=== PATIENT | male | born 1945 | race African-American/Black ===

== ENCOUNTER 2018-07-17 11:05 | Inpatient (IN) | payer BC, OTHER ==
[2018-07-17 11:31] LABS: URINE APPEARANCE CLEAR; URINE BILIRUBIN NEGATIVE (<2.0 mg/dL); URINE COLOR YELLOW; URINE GLUCOSE (UA) 3+ (NEGATIVE); URINE KETONE TRACE (NEGATIVE); URINE LEUK ESTERASE NEGATIVE (NEGATIVE); URINE NITRITE NEGATIVE (NEGATIVE); URINE PROTEIN 1+ (NEGATIVE); URINE UROBILINOGEN NEGATIVE mg/dL (0.2-1.0)
[2018-07-17 11:35] LABS: EPI CELLS RARE /HPF (FEW); URINE MUCUS RARE
[2018-07-17] MEDS ORDERED: SODIUM CHLORIDE 1,000 ML IV STA (12:01)
--- NOTE | 2018-07-17 12:23 | PDOC ---
History of Present Illness - General Chief Complaint: SIRS, Suspected/Possible Stated Complaint: PCP SENT Time Seen by Provider: 07/17/18 11:54 History Source: Patient - History of Present Illness Timing/Duration: other (yesterday) Associated Symptoms: reports: fever/chills, malaise, weakness. denies: cough, diaphoresis, headaches, nausea/vomiting Past History - Past Medical History Allergies/Adverse Reactions: Allergies Allergy/AdvReac Type Severity Reaction Status Date / Time No Known Drug Allergies Allergy Verified 07/17/18 11:12 Home Medications: Ambulatory Orders Amlodipine Besylate [Norvasc -] 10 mg PO DAILY 10/24/14 Aspirin [Aspirin EC] 81 mg PO DAILY 10/24/14 Losartan Potassium 50 mg PO DAILY 10/24/14 Metformin HCl [Metformin HCl ER] 1,000 mg PO BID 10/24/14 Tamsulosin HCl [Flomax -] 0.4 mg PO DAILY 10/24/14 Atorvastatin Calcium [Lipitor] 10 mg PO HS 07/17/18 Sitagliptin Phosphate [Januvia] 50 mg PO DAILY@0700 07/17/18 Anemia: No Asthma: No Cancer: No Cardiac Disorders: No CVA: No COPD: No CHF: No Dementia: No Diabetes: Yes (IDDM) GI Disorders: Yes (COLON POLYPS, DUODENAL ULCER) Disorders: Yes (BPH) HTN: Yes Hypercholesterolemia: Yes Liver Disease: No Seizures: No Thyroid Disease: No - Surgical History Abdominal Surgery: No Appendectomy: No Cardiac Surgery: No Cholecystectomy: No Lung Surgery: No Neurologic Surgery: No Orthopedic Surgery: Yes (ARTHROSCOPIC SX LEFT KNEE 2003) - Suicide/Smoking/Psychosocial Hx Smoking History: Never smoked Hx Alcohol Use: No Drug/Substance Use Hx: No Substance Use Type: None Hx Substance Use Treatment: No Review of Systems - Review of Systems Constitutional: Yes: Fever, Malaise Respiratory: No: Cough, Shortness of Breath Cardiac (ROS): No: Chest Pain ABD/GI: No: Nausea, Vomiting, Abdominal cramping : Yes: Frequency. No: Flank Pain, Hematuria Neurological: No: Headache *Physical Exam - Vital Signs Last Vital Signs Temp Pulse Resp BP Pulse Ox 98.2 F 104 H 20 128/75 96 07/17/18 11:13 07/17/18 11:13 07/17/18 11:13 07/17/18 11:13 07/17/18 11:13 - Physical Exam General Appearance: Yes: Appropriately Dressed. No: Apparent Distress HEENT: positive: Normal Voice Neck: positive: Supple Respiratory/Chest: positive: Lungs Clear, Normal Breath Sounds. negative: Respiratory Distress Cardiovascular: positive: Regular Rate, S1, S2 Gastrointestinal/Abdominal: positive: Soft. negative: Tender Musculoskeletal: negative: CVA Tenderness Extremity: positive: Normal Inspection Integumentary: positive: Dry, Warm Neurologic: positive: Fully Oriented, Alert, Normal Mood/Affect ED Treatment Course - LABORATORY CBC & Chemistry Diagram: 07/17/18 12:18 07/17/18 12:18 - ADDITIONAL ORDERS Additional order review: Laboratory Results 07/17/18 11:21 Urine Color Yellow Urine Appearance Clear Urine pH 5.0 D Ur Specific [place] 1.025 Urine Protein 1+ H Urine Glucose (UA) 3+ H Urine Ketones Trace H Urine Blood Negative Urine Nitrite Negative Urine Bilirubin Negative Urine Urobilinogen Negative Ur Leukocyte Esterase Negative Urine WBC (Auto) 16 Urine RBC (Auto) 1 Ur Epithelial Cells Rare Urine Mucus Rare Medical Decision Making - Medical Decision Making 07/17/18 12:18 73-year-old male, history of [id number] diabetes, was in usual state of health until yesterday when pt started experiencing generalized weakness with urinary frequency and low grade fever. Pt states yesterday he urinated approximately 10 times, including going on himself per patient. No back/flank/ abd pain, hematuria, nausea, or change in bowel movements. Denies chest pain or shortness of breath See exam Fever w/ weakness R/o uti given hx, labs/cxr r/o other source Mildly tachy but afebrile w/ unremarkable exam otherwise -IVF -labs -anticipate admission 07/17/18 13:22 07/17/18 15:53 Leukocytosis to 18 with unremarkable, UA, chest x-ray and CT. Case discussed with Dr. Mcgraw who states he saw patient this a.m. and that patient was hypoxic to 92%, tachycardic and had a low-grade fever of 101 F. Agrees with admission at this time and treat for possible UTI. States patient should be admitted to hospitalist *DC/Admit/Observation/Transfer Diagnosis at time of Disposition: Malaise, Urinary frequency Fever Qualifiers: Fever type: unspecified Qualified Code(s): R50.9 - Fever, unspecified - Discharge Dispostion Condition at time of disposition: Fair Decision to Admit order: Yes - Referrals Referrals: Kareem Mcgraw MD [Primary Care Provider] - - Patient Instructions - Post Discharge Activity
[2018-07-17 12:32] LABS: BASO % 0.4 % (0-2.0); HEMATOCRIT 43.8 % (35.4-49); HEMOGLOBIN 14.3 GM/dL (11.7-16.9); LYMPH % 8.2 % (8-40); MCH 27.2 pg (25.7-33.7); MCHC 32.6 g/dl (32.0-35.9); MEAN CELL VOLUME 83.5 fl (80-96); MEAN PLT VOLUME 9.8 fl (7.5-11.1); MONO % 6.5 % (3.8-10.2); NEUT % 84.9 % (42.8-82.8); PLATELET COUNT 131 K/MM3 (134-434); RBC 5.25 M/mm3 (4.00-5.60); RDW 13.9 % (11.9-15.9); WHITE BLOOD COUNT 18.9 K/mm3 (4.0-10.0)
[2018-07-17] MEDS ORDERED: CEFTRIAXONE 1 GM in DEXTROSE 5%-WATER - 50 ML IVPB ONE (12:57)
[2018-07-17 13:00] LABS: ALBUMIN 3.3 g/dl (3.4-5.0); ANION GAP 7 MMOL/L (8-16); BILIRUBIN,TOTAL 0.9 mg/dL (0.2-1.0); BLOOD UREA NITROGEN 21 mg/dL (7-18); CALCIUM 8.8 mg/dL (8.5-10.1); CHLORIDE 102 mmol/L (98-107); CO2 28 mmol/L (21-32); CREATININE 1.5 mg/dL (0.7-1.3); GLUCOSE,RANDOM 104 mg/dL (74-106); LIPASE 60 U/L (73-393); POTASSIUM 4.2 mmol/L (3.5-5.1); SGOT/AST 13 U/L (15-37); SGPT/ALT 11 U/L (12-78); SODIUM 137 mmol/L (136-145); TOT PROT 7.6 g/dl (6.4-8.2)
[2018-07-17 13:01] LABS: ALK PHOS 65 U/L (45-117)
[2018-07-17] MEDS ORDERED: CEFTRIAXONE 1 GM/50 ML BAG ONE (13:14)
[2018-07-17] MEDS ORDERED: SODIUM CHLORIDE 1,000 ML IV SCH (16:45)
--- NOTE | 2018-07-17 17:00 | HP ---
CHIEF COMPLAINT: chills, increased urinary frequency PCP: Dr. Taveras HISTORY OF PRESENT ILLNESS: Patient is a 73 yo M with a Pmhx of HTN, DM, BPH presented to the ED because of fevers, chills,increased urinary frequency and weakness that started last night. Patient said he went to the bathroom at least 10 times since last night to urinate with 1 episode of incontinence. He also felt nauseated yesterday with 1 episode of non-bilious vomiting. He went to his PCP today and was found to have a 100.8 temp, and was advised to go to the ER. Patient denies increased thirst, dribbling, dysuria, burning, pain while sitting , hematuria, back pain, sob, dizziness, diarrhea, headaches, chest pain, and history of UTI/Kidney stones. ER course was notable for: (1) WBC 18.8, Temp 101.4, HR 104 (2) Ceftriaxone, 1 L NS Recent Travel: n/a PAST MEDICAL HISTORY: per HPI PAST SURGICAL HISTORY: none Social History: Smoking: Former smoker, quit 22 years ago, smoked 2-3 packs on weekends Alcohol: denies Drugs: denies Family History: Allergies No Known Drug Allergies Allergy (Verified 07/17/18 11:12) HOME MEDICATIONS: Home Medications Medication Instructions Recorded Amlodipine Besylate [Norvasc -] 10 mg PO DAILY 10/24/14 Aspirin [Aspirin EC] 81 mg PO DAILY 10/24/14 Losartan Potassium 50 mg PO DAILY 10/24/14 Metformin HCl [Metformin HCl ER] 1,000 mg PO BID 10/24/14 Tamsulosin HCl [Flomax -] 0.4 mg PO DAILY 10/24/14 Atorvastatin Calcium [Lipitor] 10 mg PO HS 07/17/18 REVIEW OF SYSTEMS CONSTITUTIONAL: fevers, chills, weakness Absent: diaphoresis,, malaise, loss of appetite, weight change HEENT: Absent: rhinorrhea, nasal congestion, throat pain, throat swelling, difficulty swallowing, mouth swelling, ear pain, eye pain, visual changes CARDIOVASCULAR: Absent: chest pain, syncope, palpitations, irregular heart rate, lightheadedness , peripheral edema RESPIRATORY: Absent: cough, shortness of breath, dyspnea with exertion, orthopnea, wheezing, stridor, hemoptysis GASTROINTESTINAL: Absent: abdominal pain, abdominal distension, nausea, vomiting, diarrhea, constipation, melena, hematochezia GENITOURINARY: Absent: dysuria, frequency, urgency, hesitancy, hematuria, flank pain, genital pain MUSCULOSKELETAL: Absent: myalgia, arthralgia, joint swelling, back pain, neck pain SKIN: Absent: rash, itching, pallor Absent: headache, focal weakness or paresthesias, dizziness, unsteady gait, seizure, mental status changes, bladder or bowel incontinence PHYSICAL EXAMINATION Vital Signs - 24 hr 07/17/18 07/17/18 11:13 16:56 Temperature 98.2 F 101.4 F H Pulse Rate 104 H Pulse Rate [ 95 H Right Apical] Respiratory 20 20 Rate Blood Pressure 128/75 Blood Pressure 127/53 [Left] O2 Sat by Pulse 96 96 Oximetry (%) GENERAL: Awake, alert, and fully oriented, in no acute distress. HEAD: Normal with no signs of trauma. EYES: Pupils equal, round and reactive to light, extraocular movements intact, conjunctiva clear EARS, NOSE, THROAT: oropharynx clear without exudates. Moist mucous membranes. NECK: supple without lymphadenopathy, JVD, or masses. LUNGS: Breath sounds equal, clear to auscultation bilaterally. No wheezes, and no crackles. HEART: RRR, no MGR ABDOMEN: Obese, Soft, nontender, not distended, normoactive bowel sounds. No suprapubic tenderness. MUSCULOSKELETAL: Normal range of motion at all joints. No CVA tenderness. LOWER EXTREMITIES: 2+ pulses, warm, No peripheral edema. NEUROLOGICAL: Cranial nerves II-XII intact. Normal speech. PSYCHIATRIC: Cooperative. Good eye contact. Appropriate mood and affect. SKIN: Warm, dry, normal turgor, no rashes or lesions noted, normal capillary refill. Rectal: Normal tone, no ext hemorrhoids, no tenderness to palpation. Laboratory Results - last 24 hr 07/17/18 07/17/18 07/17/18 11:21 12:18 12:18 WBC 18.9 H RBC 5.25 Hgb 14.3 Hct 43.8 MCV 83.5 MCH 27.2 MCHC 32.6 RDW 13.9 Plt Count 131 L MPV 9.8 Absolute Neuts (auto) 16.0 H Neutrophils % 84.9 H Lymphocytes % 8.2 Monocytes % 6.5 Eosinophils % 0.0 Basophils % 0.4 Nucleated RBC % 0 Sodium 137 Potassium 4.2 Chloride 102 Carbon Dioxide 28 Anion Gap 7 L BUN 21 H Creatinine 1.5 H Creat Clearance w eGFR 45.75 Random Glucose 104 Lactic Acid Calcium 8.8 Total Bilirubin 0.9 AST 13 L ALT 11 L Alkaline Phosphatase 65 Total Protein 7.6 Albumin 3.3 L Lipase 60 L Urine Color Yellow Urine Appearance Clear Urine pH 5.0 D Ur Specific [place] 1.025 Urine Protein 1+ H Urine Glucose (UA) 3+ H Urine Ketones Trace H Urine Blood Negative Urine Nitrite Negative Urine Bilirubin Negative Urine Urobilinogen Negative Ur Leukocyte Esterase Negative Urine WBC (Auto) 16 Urine RBC (Auto) 1 Ur Epithelial Cells Rare Urine Mucus Rare 07/17/18 12:18 WBC RBC Hgb Hct MCV MCH MCHC RDW Plt Count MPV Absolute Neuts (auto) Neutrophils % Lymphocytes % Monocytes % Eosinophils % Basophils % Nucleated RBC % Sodium Potassium Chloride Carbon Dioxide Anion Gap BUN Creatinine Creat Clearance w eGFR Random Glucose Lactic Acid 1.4 Calcium Total Bilirubin AST ALT Alkaline Phosphatase Total Protein Albumin Lipase Urine Color Urine Appearance Urine pH Ur Specific [place] Urine Protein Urine Glucose (UA) Urine Ketones Urine Blood Urine Nitrite Urine Bilirubin Urine Urobilinogen Ur Leukocyte Esterase Urine WBC (Auto) Urine RBC (Auto) Ur Epithelial Cells Urine Mucus ASSESSMENT/PLAN: 73 yo M with a Pmhx of HTN, DM, BPH presented to the ED because of fevers, chills,increased urinary frequency and weakness found to be Septic 2/2 to Pyelonephritis. #Sepsis 2/2 to Pyelonephritis -unlikely prostatitis. although patient with severely enlarged prostate, patient has no signs. -WBC 18.8, Temp 101.4, HR 104 -Ucx, bcx pending -U/a with 1+ protein, 3+ glucose, wbc 16 -CXR unremarkable -A/P CT: unremarkable for acute pathology. Enlarged BP measuring madeline 5.8x6x6 cm -IV abx: Ceftriaxone Day 1 -IV fluids @ 100ml/hour #CAYETANO -1.5 with unknown baseline -likely prerenal -urine studies, Na, Cr -A/P Ct with 2 Renal cysts, largest measuring 4.6cm -Hold Losartan -avoid nephrotoxins -IV fluids NS@100ml/hour -Follow BMP #DM -Hold metformin 1000 BID -Sliding scale TIDAC -BGM #HTN/CAD -held Losartan -Cont. home med, Norvasc 10mg -Cont. Lipitor 10mg -Cont. ASA #BPH -cont. Tamsulosin #FEN -NS @ 100/ml/hour -WNL -Diabetic diet Visit type - Emergency Visit Emergency Visit: Yes ED Registration Date: 07/17/18 Care time: The patient presented to the Emergency Department on the above date and was hospitalized for further evaluation of their emergent condition. - New Patient This patient is new to me today: Yes Date on this admission: 07/17/18 - Critical Care Critical Care patient: No Hospitalist Screening - Colonoscopy Questionnaire Colonoscopy Questionnaire: Colonoscopy Questionnaire - Patient: 50 - 75 years old and never had a screening colonoscopy: Unknown History of colon or rectal polyps, or CA: Unknown History of IBD, Crohn's disease or UC: Unknown History of abdominal radiation therapy as a child: Unknown - Relative: 1 with colon or rectal CA, or polyps at age 60 or younger: Unknown Colon or rectal CA diagnosed at age 45 or younger: Unknown Multiple relatives with colon or rectal CA: Unknown - Outcome: Screening Result: Negative Screen
[2018-07-17] MEDS ORDERED: ACETAMINOPHEN 325 MG TABLET (FP) ONE (17:45)
[2018-07-17] MEDS ORDERED: ACETAMINOPHEN 325 MG TABLET (FP) PO ONE (17:50)
--- NOTE | 2018-07-17 17:57 | PN ---
Teaching Attending Note Name of Resident: Sunita Huerta ATTENDING PHYSICIAN STATEMENT I saw and evaluated the patient. I reviewed the resident's note and discussed the case with the resident. I agree with the resident's findings and plan as documented. CC: fever , chills, urinary frequency. HPI: 73 y/o man with h/o HTN, BPH, and DM who presented with fever , chills, and urinary frequency that started yesterday. He was doing well before that and sx started, with no hematuria , or dysuria , or pelvic discomfort with sitting. He had one episode of vomiting, but no bloody emesis. he denies abd pain, or flank pain. denies h/o nephrolithiasis or urinary stents or recent urinary procedures or recent Abx exposure. in ER, he was found to have a UA suggestive of UTi and was given Ceftriaxone. CT Abd/pelvis ( images reviewed) , showed enlarged prostate, 2 cysts in R kidney , and no abscesses or acute pathology. OBJECTIVE: NAD, Awake, and alert. HEENT: MMM, EOMI, round equal pupils reactive to light , no LAP in neck. tongue and uvula at mid line. CV: RRR , 2/6 Sm at LUSB and apex with no radiation . Lungs : CTAB Abd: obese, soft, Nt, Nd , NL BS Ext: no edema , no erythema, no evidence of fungal infection. Rectal : enlarged prostate with no tenderness Neuro :MMM, EOMI, round equal pupils reactive to light. tongue and uvula at mid line.strength 5/5 in upper and lower extremities proximally and distally. reflexes 1+ biceps , 1+ knee jerk b/l. ASSESSMENT AND PLAN: 73 y/o man with h/o HTN, BPH, and DM who presented with fever , chills, and urinary frequency x1 day and was found to have UTI. 1- Complicated UTI/pyelonephritis: hemodynamically but has systemic signs and symptoms. He has no evidence of prostatitis as his prostate is not tender on rectal exam. - ceftriaxone - follow urine and blood cx . - IVF hydration 2- Porfirio : likely prerenal, and due to sepsis . No hydro on CT scan . Old cysts in R kidney were seen on a previous CT scan . - IVF. - monitor renal function - hold ARB 3- HTN: cont norvasc , and hold losartan 4- BPH: significant enlargement in prostate gland on CT. No previous CT/abd to compare to. - f/u with PCP /uro for PSA 5- DVT PX : heparin Sq
[2018-07-17] MEDS: SODIUM CHLORIDE 1,000 ML IV SCH (18:07)
[2018-07-17] MEDS ORDERED: IBUPROFEN 400 MG TABLET (FP) PO ONE ×2 (19:16→19:31)
[2018-07-17 20:28] VITALS: BMI 31.8
[2018-07-17] MEDS: HEPARIN NA (PORCINE) 5,000 UNITS/ML 1ML VIAL SQ SCH (21:55)
[2018-07-17] MEDS: ATORVASTATIN CA 10 MG TABLET (FP) PO SCH (21:56)
[2018-07-17] MEDS ORDERED: INSULIN SLIDING SCALE (NOVOLOG) 1 VIAL SQ SCH (22:00)
[2018-07-18] MEDS: HEPARIN NA (PORCINE) 5,000 UNITS/ML 1ML VIAL SQ SCH ×3 (05:22→21:21)
[2018-07-18] MEDS: SODIUM CHLORIDE 1,000 ML IV SCH ×3 (05:54→21:20)
[2018-07-18] MEDS: INSULIN SLIDING SCALE (NOVOLOG) 1 VIAL SQ SCH ×3 (06:02→17:21)
[2018-07-18 07:39] LABS: HEMATOCRIT 40.7 % (35.4-49); HEMOGLOBIN 12.9 GM/dL (11.7-16.9); MCH 26.5 pg (25.7-33.7); MCHC 31.8 g/dl (32.0-35.9); MEAN CELL VOLUME 83.5 fl (80-96); MEAN PLT VOLUME 9.5 fl (7.5-11.1); PLATELET COUNT 105 K/MM3 (134-434); RBC 4.87 M/mm3 (4.00-5.60); RDW 13.8 % (11.9-15.9); WHITE BLOOD COUNT 16.8 K/mm3 (4.0-10.0)
[2018-07-18 08:14] LABS: ALBUMIN 2.8 g/dl (3.4-5.0); ANION GAP 10 MMOL/L (8-16); BILIRUBIN,TOTAL 0.7 mg/dL (0.2-1.0); BLOOD UREA NITROGEN 19 mg/dL (7-18); CALCIUM 8.3 mg/dL (8.5-10.1); CHLORIDE 109 mmol/L (98-107); CO2 26 mmol/L (21-32); CREATININE 1.1 mg/dL (0.7-1.3); GLUCOSE,RANDOM 97 mg/dL (74-106); POTASSIUM 4.3 mmol/L (3.5-5.1); SGOT/AST 13 U/L (15-37); SGPT/ALT 10 U/L (12-78); SODIUM 145 mmol/L (136-145)
[2018-07-18 08:16] LABS: ALK PHOS 55 U/L (45-117); TOT PROT 6.3 g/dl (6.4-8.2)
[2018-07-18] MEDS: TAMSULOSIN HCL 0.4 MG CAP.ER.24H (FP) PO SCH (09:15)
--- NOTE | 2018-07-18 09:47 | PN ---
Physical Exam: SUBJECTIVE: Patient seen and examined at bedside. Patient is resting comfortably in bed, eating breakfast. Admits improvement with urination stream and diminishing urinary dribbling. Has urinated three times this morning without dysuria, hematuria. Denies any acute complaints this morning. Denies fevers, chills, headache, lightheadedness, cough, shortness of breath, chest pain, palpitations, abdominal pain, nausea, vomiting, diarrhea. OBJECTIVE: Vital Signs Period Temp Pulse Resp BP Sys/Toribio Pulse Ox Last 24 Hr 97.8 F-101.5 F 59-104 17-20 112-133/52-75 95-96 GENERAL: The patient is awake, alert, and fully oriented, in no acute distress. HEAD: Normal with no signs of trauma. EYES: PERRL, extraocular movements intact, sclera anicteric, conjunctiva clear. ENT: Oropharynx clear without exudates, moist mucous membranes. NECK: Trachea midline, full range of motion, supple without lymphadenopathy LUNGS: Breath sounds equal, clear to auscultation bilaterally, no wheezes, no crackles, no accessory muscle use with respiration. HEART: Regular rate and rhythm, S1, S2 without murmur, rub or gallop. ABDOMEN: Soft, nontender, nondistended, normoactive bowel sounds, no guarding, no rebound, no hepatosplenomegaly, no masses. No CVA tenderness B/L EXTREMITIES: 2+ pulses, warm, well-perfused, no edema. NEUROLOGICAL: Cranial nerves II through XII grossly intact. Normal speech, no gross focal deficits. PSYCH: Appropriate mood and affect upon my encounter today. SKIN: Warm, dry, no rashes or lesions noted Laboratory Results - last 24 hr 07/17/18 07/17/18 07/17/18 11:21 12:18 12:18 WBC 18.9 H RBC 5.25 Hgb 14.3 Hct 43.8 MCV 83.5 MCH 27.2 MCHC 32.6 RDW 13.9 Plt Count 131 L MPV 9.8 Absolute Neuts (auto) 16.0 H Neutrophils % 84.9 H Lymphocytes % 8.2 Monocytes % 6.5 Eosinophils % 0.0 Basophils % 0.4 Nucleated RBC % 0 Sodium 137 Potassium 4.2 Chloride 102 Carbon Dioxide 28 Anion Gap 7 L BUN 21 H Creatinine 1.5 H Creat Clearance w eGFR 45.75 POC Glucometer Random Glucose 104 Lactic Acid Calcium 8.8 Total Bilirubin 0.9 AST 13 L ALT 11 L Alkaline Phosphatase 65 Total Protein 7.6 Albumin 3.3 L Lipase 60 L Urine Color Yellow Urine Appearance Clear Urine pH 5.0 D Ur Specific [place] 1.025 Urine Protein 1+ H Urine Glucose (UA) 3+ H Urine Ketones Trace H Urine Blood Negative Urine Nitrite Negative Urine Bilirubin Negative Urine Urobilinogen Negative Ur Leukocyte Esterase Negative Urine WBC (Auto) 16 Urine RBC (Auto) 1 Ur Epithelial Cells Rare Urine Mucus Rare 07/17/18 07/17/18 07/18/18 12:18 21:55 05:22 WBC RBC Hgb Hct MCV MCH MCHC RDW Plt Count MPV Absolute Neuts (auto) Neutrophils % Lymphocytes % Monocytes % Eosinophils % Basophils % Nucleated RBC % Sodium Potassium Chloride Carbon Dioxide Anion Gap BUN Creatinine Creat Clearance w eGFR POC Glucometer 96 75 Random Glucose Lactic Acid 1.4 Calcium Total Bilirubin AST ALT Alkaline Phosphatase Total Protein Albumin Lipase Urine Color Urine Appearance Urine pH Ur Specific [place] Urine Protein Urine Glucose (UA) Urine Ketones Urine Blood Urine Nitrite Urine Bilirubin Urine Urobilinogen Ur Leukocyte Esterase Urine WBC (Auto) Urine RBC (Auto) Ur Epithelial Cells Urine Mucus 07/18/18 07/18/18 06:00 06:00 WBC 16.8 H RBC 4.87 Hgb 12.9 Hct 40.7 MCV 83.5 MCH 26.5 MCHC 31.8 L RDW 13.8 Plt Count 105 L MPV 9.5 Absolute Neuts (auto) Neutrophils % Lymphocytes % Monocytes % Eosinophils % Basophils % Nucleated RBC % Sodium 145 Potassium 4.3 Chloride 109 H Carbon Dioxide 26 Anion Gap 10 BUN 19 H Creatinine 1.1 Creat Clearance w eGFR > 60 POC Glucometer Random Glucose 97 Lactic Acid Calcium 8.3 L Total Bilirubin 0.7 AST 13 L ALT 10 L Alkaline Phosphatase 55 D Total Protein 6.3 L Albumin 2.8 L Lipase Urine Color Urine Appearance Urine pH Ur Specific [place] Urine Protein Urine Glucose (UA) Urine Ketones Urine Blood Urine Nitrite Urine Bilirubin Urine Urobilinogen Ur Leukocyte Esterase Urine WBC (Auto) Urine RBC (Auto) Ur Epithelial Cells Urine Mucus Active Medications Generic Name Dose Route Start Last Admin Trade Name Freq PRN Reason Stop Dose Admin Amlodipine Besylate 10 mg 07/18/18 10:00 Norvasc - PO DAILY RHETT Aspirin 81 mg 07/18/18 10:00 Ecotrin - PO DAILY RHETT Atorvastatin Calcium 10 mg 07/17/18 22:00 07/17/18 21:56 Lipitor - PO 10 mg HS RHETT Administration Heparin Sodium (Porcine) 5,000 unit 07/17/18 22:00 07/18/18 05:22 Heparin - SQ 5,000 unit TID RHETT Administration Sodium Chloride 1,000 mls @ 100 mls/hr 07/17/18 17:50 07/18/18 05:54 Normal Saline - IV 100 mls/hr ASDIR RHETT Administration Ceftriaxone Sodium 1 gm/ 100 mls @ 200 mls/hr 07/18/18 10:00 Dextrose IVPB DAILY [facility] Insulin Aspart 1 vial 07/18/18 07:00 07/18/18 06:02 Novolog Vial Sliding Scale - SQ Not Given TIDAC [facility] Protocol Tamsulosin HCl 0.4 mg 07/18/18 08:30 Flomax - PO DAILY@0830 [facility] ASSESSMENT/PLAN: 73 year old male with history of HTN, HLD, DM, BPH, presented with complaint of urinary frequency, and dribbling for the past two days. Admitted for acute complicated UTI. Acute complicated urinary tract infection -Improving. Patient admits improvement in urinary stream without dribbling today. -WBC 16.8 (18.9 on admission) -Ceftriaxone 1gm IV QD (day 2) -Urine cultures- preliminary reading shows Lactose fermenting gram negative Bacilli. -F/U Blood cultures -Tylenol 650mg Q6 PRN for fever. CAYETANO -Improving- likely sepsis induced acute kidney injury -Cr today 1.1 (1.5 on admission) -On IVNS fluids at 100mL/hr for rehydration HTN -Continue home medication Norvasc 10mg PO QD HLD -Continue home medication Lipitor 10mg PO QHS DM -Holding oral home medications -ISS -BGM ACHS BPH -Continue home medication Tamsulosin 0.4mg PO QD FEN -IVNS 100mL/hr -Will follow CMP -Regular diet Prophylaxis -Heparin [id number] TID Disposition -Continue care in medical-surgical floor Visit type - Emergency Visit Emergency Visit: Yes ED Registration Date: 07/17/18 Care time: The patient presented to the Emergency Department on the above date and was hospitalized for further evaluation of their emergent condition. - New Patient This patient is new to me today: Yes Date on this admission: 07/18/18 - Critical Care Critical Care patient: No - Discharge Referral Referred to [facility] Med P.C.: No
[2018-07-18] MEDS ORDERED: cefTRIAXone SODIUM 1 GM VIAL ONE (09:51)
[2018-07-18] MEDS ORDERED: DEXTROSE 5%-WATER 100 ML IVPB ONE (09:52)
[2018-07-18] MEDS: ASPIRIN COATED 81 MG TABLET.EC PO SCH (09:53)
[2018-07-18] MEDS: amLODIPine BESYLATE 10 MG TABLET (FP) PO SCH (09:53)
[2018-07-18] MEDS: CEFTRIAXONE 1 GM in DEXTROSE 5%-WATER 100 ML IVPB SCH (09:53)
[2018-07-18] MEDS: guaiFENesin/D-METHORPHAN HB 10 ML UNIT-DOSE CUPS PO PRN ×2 (15:14→21:25)
--- NOTE | 2018-07-18 17:16 | EKG ---
Test Reason : Blood Pressure : / mmHG Vent. Rate : 096 BPM Atrial Rate : 096 BPM P-R Int : 174 ms QRS Dur : 090 ms QT Int : 316 ms P-R-T Axes : 062 -11 070 degrees QTc Int : 399 ms NORMAL SINUS RHYTHM LOW VOLTAGE QRS NONSPECIFIC T WAVE ABNORMALITY ABNORMAL ECG Confirmed by MD ADY, MAUDE ([id number]) on 07/18/2018 5:16:36 PM Referred By: Confirmed By:MAUDE GARSIA MD
[2018-07-18] MEDS ORDERED: ACETAMINOPHEN 325 MG TABLET (FP) PO PRN (17:30)
--- NOTE | 2018-07-18 17:38 | PN ---
Teaching Attending Note Name of Resident: Zia Leyva ATTENDING PHYSICIAN STATEMENT I saw and evaluated the patient. I reviewed the resident's note and discussed the case with the resident. I agree with the resident's findings and plan as documented. SUBJECTIVE:feels better . cont to have fever OBJECTIVE: NAD, Awake, and alert. CV: RRR , 2/6 Sm at LUSB and apex with no radiation . Lungs : CTAB Abd: obese, soft, Nt, Nd , NL BS Ext: no edema , no erythema ASSESSMENT AND PLAN: 73 y/o man with h/o HTN, BPH, and DM who presented with fever , chills, and urinary frequency x1 day and was found to have UTI. 1- Complicated UTI/pyelonephritis: - cont ceftriaxne - fever within 24 hour form starting abx. cont to monitor - follow blood cx - no prostate tenderness . - if con t ohave fever > 24 hour form starting treatment, then will US the kidneys 2- Porfirio :improved - cont IVF 3- HTN: cont norvasc , and hold losartan 4- BPH: significant enlargement in prostate gland on CT. No previous CT/abd to compare to. - f/u with PCP /uro for PSA . - non tender on rectal exam. 5- DVT PX : heparin Sq
[2018-07-18] MEDS ORDERED: INSULIN (NOVOLOG) ASPART 100 UNITS/ML 10ML VIAL ONE (20:21)
[2018-07-18] MEDS ORDERED: PT OWN MED DRAWER 7, Y5N ONE (20:22)
[2018-07-18] MEDS: ATORVASTATIN CA 10 MG TABLET (FP) PO SCH (21:21)
[2018-07-19] MEDS: SODIUM CHLORIDE 1,000 ML IV SCH (06:15)
[2018-07-19] MEDS: HEPARIN NA (PORCINE) 5,000 UNITS/ML 1ML VIAL SQ SCH ×2 (06:15→13:25)
[2018-07-19] MEDS: guaiFENesin/D-METHORPHAN HB 5 ML UNIT-DOSE CUPS PO PRN ×2 (06:18→09:45)
[2018-07-19] MEDS: INSULIN SLIDING SCALE (NOVOLOG) 1 VIAL SQ SCH ×2 (06:18→11:34)
[2018-07-19 07:42] LABS: BASO % 0.4 % (0-2.0); EOS % 0.4 % (0-4.5); HEMATOCRIT 39.4 % (35.4-49); HEMOGLOBIN 12.6 GM/dL (11.7-16.9); LYMPH % 17.9 % (8-40); MEAN CELL VOLUME 84.1 fl (80-96); MEAN PLT VOLUME 9.8 fl (7.5-11.1); NEUT % 72.3 % (42.8-82.8); PLATELET COUNT 120 K/MM3 (134-434); RBC 4.68 M/mm3 (4.00-5.60); RDW 13.8 % (11.9-15.9); WHITE BLOOD COUNT 10.1 K/mm3 (4.0-10.0)
[2018-07-19 08:31] LABS: ALBUMIN 2.6 g/dl (3.4-5.0); ANION GAP 6 MMOL/L (8-16); CHLORIDE 108 mmol/L (98-107); CO2 27 mmol/L (21-32); GLUCOSE,RANDOM 92 mg/dL (74-106); POTASSIUM 3.9 mmol/L (3.5-5.1); SODIUM 141 mmol/L (136-145)
[2018-07-19 08:35] LABS: ALK PHOS 55 U/L (45-117); BILIRUBIN,TOTAL 0.6 mg/dL (0.2-1.0); BLOOD UREA NITROGEN 13 mg/dL (7-18); SGOT/AST 22 U/L (15-37); SGPT/ALT 11 U/L (12-78); TOT PROT 6.1 g/dl (6.4-8.2)
--- NOTE | 2018-07-19 09:01 | PN ---
Physical Exam: SUBJECTIVE: Patient seen and examined at bedside this morning. He denies any acute complaints. Admits to urinating three times into urinal with hesitancy. Urine is yellow and cloudy appearing. Denies dysuria, hematura, flank pain, bladder pain. Denies fevers, chills, chest pain, palpitations, abdominal pain, nausea, vomiting, diarrhea. Still complains of chronic cough with white/clear mucus, ongoing for past two years with numerous prior workup. OBJECTIVE: Vital Signs Period Temp Pulse Resp BP Sys/Toribio Pulse Ox Last 24 Hr 98.6 F-101.2 F 70-92 18-20 116-137/66-73 97-97 GENERAL: The patient is awake, alert, and fully oriented, in no acute distress. HEAD: Normal with no signs of trauma. EYES: PERRL, extraocular movements intact, sclera anicteric, conjunctiva clear. ENT: Oropharynx clear without exudates, moist mucous membranes. NECK: Trachea midline, full range of motion, supple without lymphadenopathy LUNGS: Breath sounds equal, clear to auscultation bilaterally, no wheezes, no crackles, no accessory muscle use with respiration. HEART: Regular rate and rhythm, S1, S2 without murmur, rub or gallop. ABDOMEN: Soft, nontender, nondistended, normoactive bowel sounds, no guarding, no rebound, no hepatosplenomegaly, no masses. No CVA tenderness B/L EXTREMITIES: 2+ pulses, warm, well-perfused, no edema. NEUROLOGICAL: Cranial nerves II through XII grossly intact. Normal speech, no gross focal deficits. PSYCH: Appropriate mood and affect upon my encounter today. SKIN: Warm, dry, no rashes or lesions noted Laboratory Results - last 24 hr 07/18/18 07/18/18 07/19/18 11:40 16:37 06:14 WBC RBC Hgb Hct MCV MCH MCHC RDW Plt Count MPV Absolute Neuts (auto) Neutrophils % Lymphocytes % Monocytes % Eosinophils % Basophils % Nucleated RBC % Sodium Potassium Chloride Carbon Dioxide Anion Gap BUN Creatinine Creat Clearance w eGFR POC Glucometer 108 155 85 Random Glucose Calcium Total Bilirubin AST ALT Alkaline Phosphatase Total Protein Albumin 07/19/18 07/19/18 06:45 06:45 WBC 10.1 H RBC 4.68 Hgb 12.6 Hct 39.4 MCV 84.1 MCH 27.0 MCHC 32.0 RDW 13.8 Plt Count 120 L MPV 9.8 Absolute Neuts (auto) 7.3 Neutrophils % 72.3 Lymphocytes % 17.9 D Monocytes % 9.0 Eosinophils % 0.4 D Basophils % 0.4 Nucleated RBC % 0 Sodium 141 Potassium 3.9 Chloride 108 H Carbon Dioxide 27 Anion Gap 6 L BUN 13 Creatinine 1.0 Creat Clearance w eGFR > 60 POC Glucometer Random Glucose 92 Calcium 8.0 L Total Bilirubin 0.6 AST 22 D ALT 11 L Alkaline Phosphatase 55 Total Protein 6.1 L Albumin 2.6 L Active Medications Generic Name Dose Route Start Last Admin Trade Name Freq PRN Reason Stop Dose Admin Acetaminophen 650 mg 07/18/18 17:30 07/18/18 18:16 Tylenol - PO 650 mg Q6H PRN Administration FEVER Amlodipine Besylate 10 mg 07/18/18 10:00 07/18/18 09:53 Norvasc - PO 10 mg DAILY RHETT Administration Aspirin 81 mg 07/18/18 10:00 07/18/18 09:53 Ecotrin - PO 81 mg DAILY RHETT Administration Atorvastatin Calcium 10 mg 07/17/18 22:00 07/18/18 21:21 Lipitor - PO 10 mg HS RHETT Administration Guaifenesin 10 ml 07/19/18 01:49 07/19/18 06:18 Guaifenesin Dm Syrup PO 10 ml Q4H PRN Administration COUGH Heparin Sodium (Porcine) 5,000 unit 07/17/18 22:00 07/19/18 06:15 Heparin - SQ 5,000 unit TID RHETT Administration Sodium Chloride 1,000 mls @ 100 mls/hr 07/17/18 17:50 07/19/18 06:15 Normal Saline - IV 100 mls/hr ASDIR RHETT Administration Ceftriaxone Sodium 1 gm/ 100 mls @ 200 mls/hr 07/18/18 10:00 07/18/18 09:53 Dextrose IVPB 200 mls/hr DAILY RHETT Administration Insulin Aspart 1 vial 07/18/18 07:00 07/19/18 06:18 Novolog Vial Sliding Scale - SQ Not Given TIDAC [facility] Protocol Tamsulosin HCl 0.4 mg 07/18/18 08:30 07/18/18 09:15 Flomax - PO 0.4 mg DAILY@0830 RHETT Administration ASSESSMENT/PLAN: Patient is a 73 year old male with history of HTN, HLD, DM, BPH, presented with complaint of urinary frequency, and dribbling for the past two days. Admitted for acute complicated UTI. Treated with IV Ceftriaxone. Urine culture grew E. coli. He was admitted with CAYETANO which improved with IV NS. HTN was controlled with home medication Norvasc. HLD was controlled with Lipitor home medication. BPH managed with home medication Tamsulosin. DM was managed with ISS. Patient discharged on Ceftin and Bacid. Discussed to follow up with PCP within one week after discharge.
[2018-07-19] MEDS ORDERED: cefTRIAXone SODIUM 1 GM VIAL ONE (09:34)
[2018-07-19] MEDS ORDERED: DEXTROSE 5%-WATER 100 ML IVPB ONE (09:34)
[2018-07-19 09:40] VITALS: TEMP 98.4
[2018-07-19] MEDS: amLODIPine BESYLATE 10 MG TABLET (FP) PO SCH (09:41)
[2018-07-19] MEDS: TAMSULOSIN HCL 0.4 MG CAP.ER.24H (FP) PO SCH (09:41)
[2018-07-19] MEDS: ASPIRIN COATED 81 MG TABLET.EC PO SCH (09:41)
[2018-07-19] MEDS: CEFTRIAXONE 1 GM in DEXTROSE 5%-WATER 100 ML IVPB SCH (09:41)
[2018-07-19] MEDS ORDERED: INSULIN (NOVOLOG) ASPART 100 UNITS/ML 10ML VIAL ONE (11:05)
[2018-07-19 13:50] VITALS: BP 116/61; PULSE 63
--- NOTE | 2018-07-19 15:09 | PN ---
Teaching Attending Note Name of Resident: Zia Leyva ATTENDING PHYSICIAN STATEMENT I saw and evaluated the patient. I reviewed the resident's note and discussed the case with the resident. I agree with the resident's findings and plan as documented. SUBJECTIVE: Patient is comfortable with no acute distress. OBJECTIVE: Vital Signs Temperature 98.4 F 07/19/18 13:49 Pulse Rate 63 07/19/18 13:49 Respiratory Rate 20 07/19/18 13:49 Blood Pressure 116/61 07/19/18 13:49 O2 Sat by Pulse Oximetry (%) 97 07/19/18 09:21 CBCD WBC 10.1 K/mm3 (4.0-10.0) H 07/19/18 06:45 RBC 4.68 M/mm3 (4.00-5.60) 07/19/18 06:45 Hgb 12.6 GM/dL (11.7-16.9) 07/19/18 06:45 Hct 39.4 % (35.4-49) 07/19/18 06:45 MCV 84.1 fl (80-96) 07/19/18 06:45 MCHC 32.0 g/dl (32.0-35.9) 07/19/18 06:45 RDW 13.8 % (11.9-15.9) 07/19/18 06:45 Plt Count 120 K/MM3 (134-434) L 07/19/18 06:45 MPV 9.8 fl (7.5-11.1) 07/19/18 06:45 CMP Sodium 141 mmol/L (136-145) 07/19/18 06:45 Potassium 3.9 mmol/L (3.5-5.1) 07/19/18 06:45 Chloride 108 mmol/L (98-107) H 07/19/18 06:45 Carbon Dioxide 27 mmol/L (21-32) 07/19/18 06:45 Anion Gap 6 MMOL/L (8-16) L 07/19/18 06:45 BUN 13 mg/dL (7-18) 07/19/18 06:45 Creatinine 1.0 mg/dL (0.7-1.3) 07/19/18 06:45 Creat Clearance w eGFR > 60 (>60) 07/19/18 06:45 Random Glucose 92 mg/dL (74-106) 07/19/18 06:45 Calcium 8.0 mg/dL (8.5-10.1) L 07/19/18 06:45 Total Bilirubin 0.6 mg/dL (0.2-1.0) 07/19/18 06:45 AST 22 U/L (15-37) D 07/19/18 06:45 ALT 11 U/L (12-78) L 07/19/18 06:45 Alkaline Phosphatase 55 U/L (45-117) 07/19/18 06:45 Total Protein 6.1 g/dl (6.4-8.2) L 07/19/18 06:45 Albumin 2.6 g/dl (3.4-5.0) L 07/19/18 06:45 Home Medication List Medication Instructions Recorded Confirmed Type Amlodipine Besylate [Norvasc -] 10 mg PO DAILY 10/24/14 07/17/18 History Aspirin [Aspirin EC] 81 mg PO DAILY 10/24/14 07/17/18 History Losartan Potassium 50 mg PO DAILY 10/24/14 07/17/18 History Metformin HCl [Metformin HCl ER] 1,000 mg PO BID 10/24/14 07/17/18 History Tamsulosin HCl [Flomax -] 0.4 mg PO DAILY 10/24/14 07/17/18 History Atorvastatin Calcium [Lipitor] 10 mg PO HS 07/17/18 07/17/18 History Active Medications Generic Name Dose Route Start Last Admin Trade Name Freq PRN Reason Stop Dose Admin Acetaminophen 650 mg 07/18/18 17:30 07/18/18 18:16 Tylenol - PO 650 mg Q6H PRN Administration FEVER Amlodipine Besylate 10 mg 07/18/18 10:00 07/19/18 09:41 Norvasc - PO 10 mg DAILY RHETT Administration Aspirin 81 mg 07/18/18 10:00 07/19/18 09:41 Ecotrin - PO 81 mg DAILY RHETT Administration Atorvastatin Calcium 10 mg 07/17/18 22:00 07/18/18 21:21 Lipitor - PO 10 mg HS RHETT Administration Guaifenesin 10 ml 07/19/18 01:49 07/19/18 09:45 Guaifenesin Dm Syrup PO 10 ml Q4H PRN Administration COUGH Heparin Sodium (Porcine) 5,000 unit 07/17/18 22:00 07/19/18 13:25 Heparin - SQ Not Given TID [facility] Ceftriaxone Sodium 1 gm/ 100 mls @ 200 mls/hr 07/18/18 10:00 07/19/18 09:41 Dextrose IVPB 200 mls/hr DAILY RHETT Administration Insulin Aspart 1 vial 07/18/18 07:00 07/19/18 11:34 Novolog Vial Sliding Scale - SQ Not Given TIDAC [facility] Protocol Tamsulosin HCl 0.4 mg 07/18/18 08:30 07/19/18 09:41 Flomax - PO 0.4 mg DAILY@0830 [facility] Administration Home Medications Medication Instructions Recorded Amlodipine Besylate [Norvasc -] 10 mg PO DAILY 10/24/14 Aspirin [Aspirin EC] 81 mg PO DAILY 10/24/14 Losartan Potassium 50 mg PO DAILY 10/24/14 Metformin HCl [Metformin HCl ER] 1,000 mg PO BID 10/24/14 Tamsulosin HCl [Flomax -] 0.4 mg PO DAILY 10/24/14 Atorvastatin Calcium [Lipitor] 10 mg PO HS 07/17/18 Cefuroxime Axetil [Ceftin -] 500 mg PO Q12H 7 Days #14 tablet 07/19/18 Microbiology 07/17/18 12:10 Blood - Peripheral Venous Blood Culture - Preliminary NO GROWTH OBTAINED AFTER 48 HOURS, INCUBATION TO CONTINUE FOR 3 DAYS. 07/17/18 12:10 Blood - Peripheral Venous Blood Culture - Preliminary NO GROWTH OBTAINED AFTER 48 HOURS, INCUBATION TO CONTINUE FOR 3 DAYS. 07/17/18 11:21 Urine - Urine Clean Catch Urine Culture - Final Escherichia Coli sensitive to Cephalosporins PE: comfortable with no acute distress. No CVA tenderness rest of exam by resident's note ASSESSMENT AND PLAN: 73 y/o man with h/o HTN, BPH, and DM who presented with fever , chills, and urinary frequency x1 day and was found to have UTI. # Complicated UTI/pyelonephritis: s/p ceftriaxne IV x 3 days will discharge the patient on Ceftin 500mg po bid x 7 more days, added Bacid to his regimen # Porfirio :improved s/p IVF # HTN: cont home meds. # BPH: f/u with PCP /uro for PSA . discharge patient home with follow up with his urologist
--- NOTE | 2018-07-20 15:55 | DS ---
Physical Exam: SUBJECTIVE: Patient seen and examined at bedside this morning. He denies any acute complaints. Admits to urinating three times into urinal with hesitancy. Urine is yellow and cloudy appearing. Denies dysuria, hematura, flank pain, bladder pain. Denies fevers, chills, chest pain, palpitations, abdominal pain, nausea, vomiting, diarrhea. OBJECTIVE: PHYSICAL EXAM GENERAL: The patient is awake, alert, and fully oriented, in no acute distress. HEAD: Normal with no signs of trauma. EYES: PERRL, extraocular movements intact, sclera anicteric, conjunctiva clear. ENT: Oropharynx clear without exudates, moist mucous membranes. NECK: Trachea midline, full range of motion, supple without lymphadenopathy LUNGS: Breath sounds equal, clear to auscultation bilaterally, no wheezes, no crackles, no accessory muscle use with respiration. HEART: Regular rate and rhythm, S1, S2 without murmur, rub or gallop. ABDOMEN: Soft, nontender, nondistended, normoactive bowel sounds, no guarding, no rebound, no hepatosplenomegaly, no masses. No CVA tenderness B/L EXTREMITIES: 2+ pulses, warm, well-perfused, no edema. NEUROLOGICAL: Cranial nerves II through XII grossly intact. Normal speech, no gross focal deficits. PSYCH: Appropriate mood and affect upon my encounter today. SKIN: Warm, dry, no rashes or lesions noted LABS HOSPITAL COURSE: Date of Admission:07/17/18 Date of Discharge: 07/19/18 Patient is a 73 year old male with history of HTN, HLD, DM, BPH, presented with complaint of urinary frequency, and dribbling for the past two days. Admitted for acute complicated UTI. Treated with IV Ceftriaxone. Urine culture grew E. coli. He was admitted with CAYETANO which improved with IV NS. HTN was controlled with home medication Norvasc. HLD was controlled with Lipitor home medication. BPH managed with home medication Tamsulosin. DM was managed with ISS. Patient discharged on Ceftin and Bacid. Discussed to follow up with PCP within one week after discharge. Minutes to complete discharge: 30 Discharge Summary Reason For Visit: MALAISE,FEVER,INCREASED FREQUENCY OR URINATION Condition: Improved - Instructions Diet, Activity, Other Instructions: You were admitted for a urinary tract infection, and were treated with antibiotics. We are adding a probiotic to your medications Please continue taking your home medications as prescribed. You will continue taking the antibiotic Ceftin 500mg every 12 hours, for 7 days. It is important that you follow up with your primary care physician within one week of discharge. Please return to the nearest emergency department if you experience fevers, chills, flank pain, bladder pain, difficulty or pain urinating, blood within the urine. Referrals: Kareem Mcgraw MD [Primary Care Provider] - 1 Week Disposition: HOME - Home Medications Comprehensive Discharge Medication List: Ambulatory Orders Amlodipine Besylate [Norvasc -] 10 mg PO DAILY 10/24/14 Aspirin [Aspirin EC] 81 mg PO DAILY 10/24/14 Losartan Potassium 50 mg PO DAILY 10/24/14 Metformin HCl [Metformin HCl ER] 1,000 mg PO BID 10/24/14 Tamsulosin HCl [Flomax -] 0.4 mg PO DAILY 10/24/14 Atorvastatin Calcium [Lipitor] 10 mg PO HS 07/17/18 Cefuroxime Axetil [Ceftin -] 500 mg PO Q12H 7 Days #14 tablet 07/19/18 Lactobacillus Acidophilus [Bacid -] 1 each PO DAILY #30 capsule 07/19/18 This patient is new to me today: No Emergency Visit: Yes ED Registration Date: 07/17/18 Care time: The patient presented to the Emergency Department on the above date and was hospitalized for further evaluation of their emergent condition. Critical Care patient: No - Discharge Referral Referred to [facility] Med P.C.: No
== END 2018-07-19 16:00 | disposition home or self-care (01) | DRG 683 ==
LOC: JER 11:05 → JERBED 15:55 → J7W 19:33
PROVIDERS: ADMIT Internal Medicine; ATTEND Internal Medicine
DX: N17.9 Acute kidney failure, unspecified (principal); N39.0 Urinary tract infection, site not specified; R50.9 Fever, unspecified; E11.9 Type 2 diabetes mellitus without complications; I10 Essential (primary) hypertension; N40.0 Benign prostatic hyperplasia without lower urinary tract symptoms; E78.00 Pure hypercholesterolemia, unspecified; K63.5 Polyp of colon; I25.10 Atherosclerotic heart disease of native coronary artery without angina pectoris; N28.1 Cyst of kidney, acquired; R35.0 Frequency of micturition; B96.20 Unspecified Escherichia coli [E. coli] as the cause of diseases classified elsewhere; Z87.891 Personal history of nicotine dependence
CPT/HCPCS: 36415; 71045-TC-FY; 74176-TC; 80053; 81003; 81015; 82962; 83605; 83690; 85025; 85027; 87040; 87086; 87186; 93005; 93010; 97116-GP; 97161-GP; 99283-25; J1644; J7030